=== PATIENT | female | born 1955 | race Caucasian/White ===

== ENCOUNTER 2017-08-11 20:05 | Inpatient (IN) | payer OTHER ==
[~2017-08-11] VITALS: Ht 170.1 cm; Wt 146.7 kg
--- NOTE | ~2017-08-11 | PR ---
[place], [place] PROGRESS NOTE NAME: AUDRA RODRIGUEZ UNIT #: [id number] ROOM: 412 DOCTOR: JD SHAH MD BIRTHDATE: [birth year] DOS: SUBJECTIVE: The patient is 62 years old, a resident of [facility] complained of increasing shortness of breath yesterday and she had audible wheezes as per the nursing staff, so she was sent out to the emergency room, diagnosed with acute diastolic CHF and was admitted. The patient this morning does not have any complaints. She feels much better. She has diuresed about 3000 mL during the night. She denies having any fever, any chills, any chest pains or palpitations PAST MEDICA HISTORY: Significant for: 1. History of coronary artery disease with history of stent placement. 2. Last hospitalization January 2016 with urinary tract infection. 3. Chronic kidney disease stage 3. 4. History of cardiomyopathy. 5. Patent foramina valve with long-term use of anticoagulant. 6. Type 2 diabetes mellitus. 7. Gastroparesis. 8. Autonomic neuropathy with orthostatic hypotension. MEDICATIONS: Breathing treatments with DuoNeb q.4h., carvedilol 3.125 twice daily, Plavix 75 daily, lisinopril 2.5 daily, Lasix 20 daily, metoclopramide 10 t.i.d., omeprazole 40 daily, Pravachol 40 daily, sodium bicarb 650 daily, warfarin and Levemir 30 at bedtime, lisinopril 2.5 daily. SOCIAL HISTORY: Nonsmoker, does not use any alcohol. PHYSICAL EXAMINATION: GENERAL: She is awake and alert and oriented. VITAL SIGNS: Blood pressure is 142/82, pulse of 85, respirations 20, temperature 97.8. LUNGS: Diminished breath sounds. No wheezes, rales or rhonchi heard. HEART: Regular. ABDOMEN: Obese, soft, nontender. EXTREMITIES: Without any edema. ASSESSMENT AND PLAN: 1. The patient with history of cardiomyopathy, admitted with possibly systolic congestive heart failure. Echocardiogram is pending. Consult Dr. Qureshi. IV diuretics were given. Continue beta blockers and ELIEZER inhibitors. 2. Type 2 diabetes mellitus, insulin-dependent, fairly controlled. 3. Chronic renal insufficiency. GFR of 41, stage 3 renal failure. Continue avoiding nephrotoxic meds and keep a close eye on the kidney functions since the patient has been placed on higher dose of diuretics. Hopefully, in a day she should be able to go back to the longterm. [place], [place] PROGRESS NOTE NAME: AUDRA RODRIGUEZ UNIT #: [id number] ROOM: [facility] DOCTOR: JD SHAH MD BIRTHDATE: [birth year] JD SHAH MD CM:PNTRANS [id number] JD SHAH MD 08/13/17 0931 MALINDA REHMAN.EMANUEL
--- NOTE | ~2017-08-11 | PR ---
[place], [place] PROGRESS NOTE NAME: AUDRA RODRIGUEZ UNIT #: [id number] ROOM: 412 DOCTOR: ERIN NASSAR MD BIRTHDATE: [birth year] DOS: 08/13/2017 SUBJECTIVE: The patient is comfortably sleeping. The patient was seen by Dr. Qureshi yesterday. OBJECTIVE: VITAL SIGNS: Hemodynamically stable. Blood pressure is stable. The patient has negative 490 mL and yesterday totally ____ liters out. NECK: Soft, supple elevated JVD. LUNGS: Diminished breath sounds. HEART: Heart sounds are regular. NEUROLOGIC: Stable. REVIEW OF SYSTEMS: Improving. LABORATORY DATA: The last echocardiogram showed an EF of 25%. Hemoglobin 10.9, hematocrit 35.2. Creatinine is 1.37, GFR is 39. IMPRESSION: Systolic congestive heart failure, cardiomyopathy, AICD, ischemic cardiomyopathy. RECOMMENDATIONS: Agree with the present management. Continue the diuretics as ordered. Continue anticoagulation. Continue ELIEZER inhibitors. Strict I's and O's. Continue the beta blockers and we will follow up. ERIN NASSAR MD CM:PNTRANS [id number] 4 ERIN NASSAR MD 08/14/174 interface
--- NOTE | ~2017-08-11 | CON ---
[place], [place] REPORT OF CONSULTATION NAME: AUDRA RODRIGUEZ UNIT #: [id number] ROOM: 412 DOCTOR: JABIER PETERSEN MD BIRTHDATE: [birth year] DOS: 08/12/2017 HISTORY OF PRESENT ILLNESS: This is a 62-year-old -[place] woman with morbid obesity, coronary artery disease, who had stent deployed in 2011. At that time, LV ejection fraction was about 25% and a year later, it remained unchanged and she had an AICD implanted. She has patent foramen ovale and I believe she has TIA and was on warfarin for this reason. Type 2 diabetes mellitus, neuropathy/gastroparesis. She does not smoke nor does she drink alcoholic beverages. She lives in a senior care and uses a walker to get around. For about 4 days, she had had increasing shortness of breath when she walked and it was worse at night and she had to wake up a few times. She had no palpitations. Did not have any chest heaviness or pressure and does not recall any dizziness or loss of consciousness. There was no nausea. She did not notice much difference in swelling of the legs. HOME MEDICATIONS: Numerous that included DuoNeb, carvedilol 3.125 b.i.d., clopidogrel 75 mg daily, furosemide 20 mg daily, fludrocortisone 0.1 mg b.i.d., mag hydroxide, metoclopramide 10 mg t.i.d., omeprazole 40 daily, pravastatin 40 daily, sodium bicarbonate 650 mg daily, warfarin 60 mg daily and 5 mg on Sundays, zinc 50 mg daily, NovoLog FlexPen and Levemir. PHYSICAL EXAMINATION: GENERAL: This reveals a patient who is very obese, pleasant, alert. She is not pale looking, no jaundice is present. There is no finger clubbing. VITAL SIGNS: Pulse is irregular at 72, blood pressure 158/94, blood pressure has been mildly elevated since admission. NECK: JVP is normal. AJR is negative. No bruit in the neck. HEART: There is no cardiomegaly and no murmurs are present. EXTREMITIES: Legs are very large, but no pitting edema is noted. RESPIRATORY: She is visibly tachypneic. Percussion note is normal. Auscultation reveals mild reduced breath sounds and crackles in the bases. DIAGNOSTIC STUDIES: Chest x-ray was read as showing no pulmonary edema. Monitor has shown normal sinus rhythm with atrial sensing, LV pacing and ECG showed normal sinus rhythm with rare PVC and biventricular pacing. LABORATORY DATA: Hemoglobin 10.9 g/dL. BUN 27, creatinine 1.32, glucose 165, potassium 3.6, sodium 142 and NT-proBNP 3670. IMPRESSION: This patient has severe ischemic cardiomyopathy, which has been pretty stable. She probably had acute on chronic diastolic failure that caused her shortness of breath, although chest x-ray did not demonstrate pulmonary edema. Current treatment with IV furosemide is appropriate and should be continued while monitoring renal function and blood pressure. I would prefer to increase the dose of carvedilol and will be changed from 3.125 to 6.25 mg b.i.d. [place], [place] REPORT OF CONSULTATION NAME: AUDRA RODRIGUEZ UNIT #: [id number] ROOM: 412 DOCTOR: JABIER PETERSEN MD BIRTHDATE: [birth year] I also recommend discontinuation of fludrocortisone, which ____ since patient has systolic heart failure. I thank you for this consult. ADDENDUM An echocardiogram was done today. It demonstrated an LV ejection fraction of 35-40%, which is an improvement from a couple of years ago. Mild pulmonary hypertension was also present and diastolic dysfunction of impaired relaxation of the left ventricle was also evident. JABIER PETERSEN MD CM:CONSTR:REPORT OF CONSULTATION 182 08/13/17 2007 interface
--- NOTE | ~2017-08-11 | WRIGHTHP ---
[place], [place] PATIENT HISTORY AND PHYSICAL EXAM NAME: AUDRA RODRIGUEZ UNIT #: [id number] ROOM: 412 DOCTOR: JD SHAH MD BIRTHDATE: [birth year] DOS: SUBJECTIVE: The patient is 62 years old, a resident of [facility] complained of increasing shortness of breath yesterday and she had audible wheezes as per the nursing staff, so she was sent out to the emergency room, diagnosed with acute diastolic CHF and was admitted. The patient this morning does not have any complaints. She feels much better. She has diuresed about 3000 mL during the night. She denies having any fever, any chills, any chest pains or palpitations PAST MEDICA HISTORY: Significant for: 1. History of coronary artery disease with history of stent placement. 2. Last hospitalization January 2016 with urinary tract infection. 3. Chronic kidney disease stage 3. 4. History of cardiomyopathy. 5. Patent foramina valve with long-term use of anticoagulant. 6. Type 2 diabetes mellitus. 7. Gastroparesis. 8. Autonomic neuropathy with orthostatic hypotension. MEDICATIONS: Breathing treatments with DuoNeb q.4h., carvedilol 3.125 twice daily, Plavix 75 daily, lisinopril 2.5 daily, Lasix 20 daily, metoclopramide 10 t.i.d., omeprazole 40 daily, Pravachol 40 daily, sodium bicarb 650 daily, warfarin and Levemir 30 at bedtime, lisinopril 2.5 daily. SOCIAL HISTORY: Nonsmoker, does not use any alcohol. PHYSICAL EXAMINATION: GENERAL: She is awake and alert and oriented. VITAL SIGNS: Blood pressure is 142/82, pulse of 85, respirations 20, temperature 97.8. LUNGS: Diminished breath sounds. No wheezes, rales or rhonchi heard. HEART: Regular. ABDOMEN: Obese, soft, nontender. EXTREMITIES: Without any edema. ASSESSMENT AND PLAN: 1. The patient with history of cardiomyopathy, admitted with possibly systolic congestive heart failure. Echocardiogram is pending. Consult Dr. Qureshi. IV diuretics were given. Continue beta blockers and ELIEZER inhibitors. 2. Type 2 diabetes mellitus, insulin-dependent, fairly controlled. 3. Chronic renal insufficiency. GFR of 41, stage 3 renal failure. Continue avoiding nephrotoxic meds and keep a close eye on the kidney functions since the patient has been placed on higher dose of diuretics. Hopefully, in a day she should be able to go back to the correction. [place], [place] PATIENT HISTORY AND PHYSICAL EXAM NAME: AUDRA RODRIGUEZ UNIT #: [id number] ROOM: [facility] DOCTOR: JD SHAH MD BIRTHDATE: [birth year] JD SHAH MD CM:HISPHYS:PATIENT HISTORY AND PHYSICAL EXAMINATION [id number] JD SHAH MD 08/13/17 0908 interface
--- NOTE | ~2017-08-11 | PR ---
[place], [place] PROGRESS NOTE NAME: AUDRA RODRIGUEZ UNIT #: [id number] ROOM: 412 DOCTOR: JD SHAH MD BIRTHDATE: [birth year] DOS: SUBJECTIVE: The patient is not having any new complaints today. She did complain of some shaking feeling from the breathing treatments. OBJECTIVE: VITAL SIGNS: Blood pressure is 140/74, pulse of 82, respirations 28, temperature 98.2. LUNGS: Diminished breath sounds. No rales heard this morning. HEART: Regular. ABDOMEN: Obese, soft. EXTREMITIES: Without any edema. LABORATORY DATA: WBC count is 7.8, hemoglobin 10.9. BMP: Glucose 138, BUN 35, creatinine 1.37. GFR 39. ASSESSMENT AND PLAN: 1. Acute systolic congestive heart failure, patient is on IV diuretics, clinically improving. 2. Tremors and shaky feeling from the breathing treatments. We will discontinue it because she does not have any evidence of bronchospasm. 3. Coronary artery disease of [place] coronaries. Continue home medications. She was seen by cardiology yesterday. The plan is to discharge her home tomorrow. JD SHAH MD CM:PNTRANS 0830 [id number] JD SHAH MD 08/13/17 1147 interface
--- NOTE | ~2017-08-11 | PR ---
[place], [place] PROGRESS NOTE NAME: AUDRA RODRIGUEZ UNIT #: [id number] ROOM: 412 DOCTOR: JD SHAH MD BIRTHDATE: [birth year] DOS: SUBJECTIVE: The patient is doing fine without any complaint. Denies any chest pains, palpitations or shortness of breath. PHYSICAL EXAMINATION: VITAL SIGNS: Blood pressure is 156/60, pulse of 73, respirations 18, temperature 97.3. LUNGS: Clear. HEART: Regular. ABDOMEN: Obese, soft, nontender. EXTREMITIES: Without any edema. ASSESSMENT AND PLAN: 1. Acute systolic congestive heart failure, clinically and radiologically improved. Echocardiogram showing LV function of 40%, which is an improvement from before. 2. History of coronary artery disease of the [place] coronaries. The patient does not have any complaints, was seen by cardiology and does not recommend any further evaluation. The plan is therefore to discharge her to the halfway today. JD SHAH MD CM:PNTRANS [id number] JD SHAH MD 08/14/17 1506 interface
--- NOTE | ~2017-08-11 | DS ---
[place], [place] DISCHARGE SUMMARY NAME: AUDRA RODRIGUEZ UNIT #: [id number] ROOM: 412 DOCTOR: JD SHAH MD BIRTHDATE: [birth year] DOS: 08/14/2017 DIAGNOSES: 1. Acute systolic congestive heart failure with ejection fraction of 40%. 2. Coronary artery disease with history of stent placement. 3. Pulmonary hypertension. 4. Chronic respiratory failure. 5. Patent foramen ovale. The patient is on long-term use of anticoagulants. 6. Type 2 diabetes mellitus, insulin-dependent. 7. Gastroparesis. 8. Autonomic neuropathy with orthostatic hypotension. 9. Benign hypertension. 10. Morbid obesity. DISCHARGE MEDICATIONS: Plavix 75 daily, insulin 30 units, Levemir at bedtime, lisinopril 2.5 daily, NovoLog FlexPen sliding scale, omeprazole 40 daily, Pravachol 40 daily, vitamin D 3000 units daily, zinc 50 daily, Tylenol 1000 mg q.8h. p.r.n., incentive spirometry q.i.d., Florinef 0.1 mg twice a day, carvedilol 3.125 mg twice a day, cholestyramine 4 grams p.o. daily, Coumadin 6 mg daily except 5 mg on Sundays, Lasix which is increased to 40 mg daily. HOSPITAL COURSE: This patient is 62 years old, very well known to us, comes in with complaints of shortness of breath. Please refer to H and P for details. The patient was admitted with diagnosis of acute systolic CHF. The patient was started on high dose of diuretics. She diuresed nicely. Cardiology consultation was obtained. Echocardiogram was ordered. Echo showed improvement in the LV function when compared to a few years ago. The patient was seen by and Dr. Qrueshi and agreed on the treatment plan. The patient is stable and is improving and is not having any new problems, so plan is to discharge her back to the assisted today, follow up as an outpatient. [place], [place] DISCHARGE SUMMARY NAME: AUDRA RODRIGUEZ UNIT #: [id number] ROOM: 412 DOCTOR: JD SHAH MD BIRTHDATE: [birth year] JD SHHA MD CM:HARSH 9 JD SHAH MD 08/14/17 1048 interface
[~2017-08-11 20:05] MED LIST: ALDACTONE25 MG PO; AMBIEN5 MG PO; AQUAPHOR1 OI1 T; ASPERCREME10% TP; ASPIRIN EC325 MG PO; ASPIRIN81 M1 PO; ATIVAN1 MG PO; B-1100 MG PO; B121000 MCG/1 IM; BUSPAR10 MG; BUSPAR10 MG PO; CARAFATE1 G1 PO; CELEXA40 MG PO; CEPHULAC10 GM/15 M PO; CIPRO500 MG PO; CLOPIDOGREL75 MG PO; COLACE; COLACE100 MG; COLACE100 MG PO; CONSTULOSE10 GM/151 PO; COREG12.5 M1 PO; COREG12.5 MG PO; COREG6.25 MG PO; COUMADIN5 MG PO; COUMADIN6 M2 PO; CYMBALTA30 MG PO; CYMBALTA60 MG PO; Clopidogrel75 MG PO; DOCUSATE100 MG PO; DOXYCYCLINE100 M3 PO; DRAMAMINE50 M1; DRAMAMINE50 M1 PO; DRAMAMINE50 M2 PO; FLORINEF0.1 MG PO; FLUDROCORTISON0.1 MG PO; HYDR1000 IM; HYDROCODONE BIT1 T12 PO; HYDROPHOR1 OI1 TP; IPRATROPIUM BR IH; JANTOVEN5 MG PO; JANTOVEN6 MG PO; K-DUR 2020 MEQ PO; K-TAB10 MEQ PO; KRISTALOSE20 GM/PACK PO; LANTUS100 U/ML; LASIX20 MG PO; LASIX40 MG PO; LEVEMIR100 U/ML; LEVEMIR100 U/ML SC; LEVEMIR100 UNIT/1 SQ; LISINOPRIL2.5 MG PO; MASOPHEN325 MG PO; MIRALAX POWDER17 G1 PO; MIRALAX POWDER17 GM PO; MIRALAX17 GM/PACK PO; MOM30 ML PO; MYCOSTATIN100000 U/G TP; NAPROSYN500 MG PO; NATURAL ZINC1 TAB PO; NEXIUM40 MG PO; NITROSTAT0.4 MG PO; NITROSTAT0.4 MG SL; NOVOLOG; NOVOLOG FLEX100 U/ML SC; NOVOLOG1 UNIT/0.0 SC; OMEPRAZOLE40 MG PO; OS-CAL 500 + D1 TAB PO; OSCAL + D; OSCAL/D,OYSTER250 MG PO; OXYCODONE5 MG PO; PHENERGAN25 M3 PO; PLAVIX75 MG PO; PRAVACHOL40 MG PO; PRAVASTATIN SOD40 MG PO; PRILOSEC20 M1 PO; PRILOSEC40 MG PO; PRINIVIL2.5 MG PO; PRINIVIL5 M1 PO; PROTONIX40 MG PO; REGLAN10 M1 PO; REGLAN10 MG PO; REMERON15 M2 PO; RENAGEL800 MG PO; RESTORIL30 MG; RESTORIL30 MG PO; SALINE NASAL SP45 ML NAS; SEA SOFT MIST 445 ML NAS; SIMVASTATIN40 MG PO; TEMAZEPAM30 MG PO; TRAMADOL HCL50 MG PO; TYLENOL EXTRA500 MG PO; TYLENOL650 M1 PO; ULTRAM50 MG PO; VITAMIN B121000 MCG PO; VITAMIN D; VITAMIN D1000 IU PO; VITAMIN D2000 IU PO; VITAMIN D31000 I1 PO; VITAMIN D33000 UNIT PO; VOLTAREN1% TP; WELLBUTRIN XL300 MG PO; ZESTRIL2.5 MG PO; ZINC NATURAL50 MG PO; ZOFRAN8 MG PO; [UNRECOGNIZED DRUG - OTHER]
[2017-08-11 20:11] VITALS: BP 176/85
[2017-08-11 20:30] LABS: BASO # 0.1 10*3/uL (0.0-0.1); BASO % 0.6 % (0.0-1.0); EOS # 0.2 10*3/uL (0.0-0.4); EOS % 2.4 % (1.0-4.0); HEMATOCRIT 35.5 % (37.0-47.0); HEMOGLOBIN 10.9 g/dl (12.0-16.0); LYMPH # 1.5 10*3/uL (1.3-4.4); LYMPH % 18.3 % (27.0-41.0); MEAN CELL VOLUME 85.1 fl (81.0-99.0); MEAN CORPUSCULAR HGB 26.1 pg (27.0-31.0); MEAN CORPUSCULAR HGB CONC 30.7 g/dl (33.0-37.0); MEAN PLATELET VOLUME 12.8 fl (9.6-12.3); MONO # 0.5 10*3/uL (0.1-1.0); NEUT % 72.5 % (47.0-73.0); PLATELET COUNT AUTOMATED 177 10*3/uL (130-400); RED BLOOD COUNT 4.17 10*6/uL (4.10-5.10); WHITE BLOOD COUNT 8.3 10*3/uL (4.8-10.8)
[2017-08-11 20:40] LABS: ACT PARTIAL THROMBO TIME 36.5 SECONDS (20.8-31.5); INTERNATIONAL NORM RATIO 2.6 (2.0-3.5)
[2017-08-11 20:47] LABS: ALBUMIN 3.1 gm/dl (3.1-4.5); ALKALINE PHOSPHATASE 145 U/L (45-117); BUN 27 mg/dl (7-24); CHLORIDE 108 mmol/L (98-107); CREATININE 1.32 mg/dL (0.55-1.02); MAGNESIUM 1.8 mg/dL (1.5-2.1); POTASSIUM 3.6 mmol/L (3.5-5.1); SGOT/AST 16 IU/L (3-35); SGPT/ALT 18 U/L (12-78); SODIUM 142 mmol/L (136-145); TOTAL PROTEIN 7.3 gm/dL (6.4-8.2)
[2017-08-11 20:49] LABS: TROPONIN I < 0.015 ng/ml (<0.045)
--- NOTE | 2017-08-11 21:42 | NUR ---
VERIFIED WITH DR MCGRATH IF HE WANTED FULL 80 MG OF LASIX TO BE GIVEN IV PUSH AND GIVEN VO BY DR TO ONLY GIVE 40MG IV
[2017-08-11 22:15] VITALS: BP 142/82
--- NOTE | 2017-08-11 22:15 | NUR ---
Time: 2214 A 62 year old FEMALE admitted to 4E under services of DR. PABLO MARIE,JD. Pt. arrived via stretcher from ER. Chief complaint: SOB, CHF. SOL KERN
[2017-08-11 22:30] VITALS: BP 142/82
--- NOTE | 2017-08-11 22:55 | NUR ---
SPOKE TO AT THIS TIME. NEW ADMISSION ORDERS RECEIVED. STATES SHE WILL PUT IN ADMIT TO ORDER TOMORROW, BUT DOES WANT PATIENT TO BE ON A MONITOR.
[2017-08-12] VITALS: BP 142/82
[2017-08-12] MEDS ORDERED: FLUDROCORTISON0.1 MG PO (01:53)
[2017-08-12] MEDS ORDERED: DUONEB 3 MG/3 ML3 M1 INH (01:53)
[2017-08-12] MEDS ORDERED: GLUCAGON EMERGEN1 M1 IM (01:55)
[2017-08-12] MEDS ORDERED: MILK OF MA400 MG/5 M PO (01:57)
[2017-08-12] MEDS ORDERED: CARVEDILOL3.125 MG PO (01:59)
[2017-08-12] MEDS ORDERED: CHOLESTYRAMI239.4 GM PO (02:02)
[2017-08-12] MEDS ORDERED: JANTOVEN6 M1 PO (02:06)
[2017-08-12] MEDS ORDERED: JANTOVEN5 MG PO (02:06)
[2017-08-12] MEDS ORDERED: ACETAMINOPHEN500 M4 PO (02:24)
[2017-08-12] MEDS ORDERED: VITAMIN B1250 MCG PO (02:26)
[2017-08-12] MEDS ORDERED: SODIUM BICARBO650 MG PO (02:30)
--- NOTE | 2017-08-12 02:30 | NUR ---
PATIENT'S MED REC UP TO DATE PER LONG TERM PAPERWORK
--- NOTE | 2017-08-12 06:49 | NUR ---
SPOKE WITH AT THIS TIME REGARDING CONSULT. INSTRUCTED TO ORDER ECHO IF PT HAS NOT HAD ONE IN PAST YEAR. ECHO ORDERED PER 'S INSTRUCTION.
--- NOTE | 2017-08-12 07:35 | NUR ---
Shift chart check completed.24 HR chart check completed.
[2017-08-12 08:00] VITALS: BP 139/82
--- NOTE | 2017-08-12 08:30 | NUR ---
ACTUARY MANAGER VS. PT IS LTC AT [facility] AND PLANS TO RETURN UPON DC.
[2017-08-12 08:43] VITALS: BP 130/80
--- NOTE | 2017-08-12 08:47 | NUR ---
DR SHAH HAS VISITED. PT IS TACHYPNEIC, ORTHOPNEIC AND DYSPNEIC WITH MINIMAL EXERTION.
--- NOTE | 2017-08-12 13:32 | NUR ---
ECHO HAS BEEN DONE AND DR PETERSEN HAS VISITED.
--- NOTE | 2017-08-12 14:09 | NUR ---
This nurse went into to evaluate patients area to left elbow. Patient has a 2.0cm x 2.0cm x <0.1cm red area that is blanchable. No drainage noted. No complaints of pain during assessment.
[2017-08-12 14:37] VITALS: BP 153/80
[2017-08-12 16:00] VITALS: BP 158/94
[2017-08-12 20:00] VITALS: BP 159/84
[2017-08-13] VITALS: BP 131/70
[2017-08-13 05:59] LABS: CREATININE 1.37 mg/dL (0.55-1.02); POTASSIUM 3.5 mmol/L (3.5-5.1)
[2017-08-13 06:02] LABS: BASO % 0.3 % (0.0-1.0); EOS # 0.1 10*3/uL (0.0-0.4); EOS % 1.7 % (1.0-4.0); HEMATOCRIT 35.2 % (37.0-47.0); HEMOGLOBIN 10.9 g/dl (12.0-16.0); LYMPH # 0.9 10*3/uL (1.3-4.4); LYMPH % 11.4 % (27.0-41.0); MEAN CELL VOLUME 85.6 fl (81.0-99.0); MEAN CORPUSCULAR HGB 26.5 pg (27.0-31.0); MEAN PLATELET VOLUME 12.9 fl (9.6-12.3); MONO # 0.6 10*3/uL (0.1-1.0); MONO % 7.8 % (3.0-9.0); NEUT # 6.1 10*3/uL (2.3-7.9); NEUT % 78.5 % (47.0-73.0); PLATELET COUNT AUTOMATED 177 10*3/uL (130-400); RED BLOOD COUNT 4.11 10*6/uL (4.10-5.10); RED CELL DISTRI WIDTH 14.8 % (0-14.5); WHITE BLOOD COUNT 7.8 10*3/uL (4.8-10.8)
[2017-08-13 08:00] VITALS: BP 139/73; BP 140/74
--- NOTE | 2017-08-13 08:00 | NUR ---
AWAKE ALERT AND ORIENTED X3, OBESE. NO C/O. NO S/S OF DISTRESS. EATING BREAKFAST. LUNGS DIMINISHED. 3L O2 VIA NC. WILL CONT TO MONITOR. CALL LIGHT IN REACH. LABS REVIEWED.
--- NOTE | 2017-08-13 08:30 | NUR ---
DR SHAH IN TO SEE PT.
[2017-08-13 12:00] VITALS: BP 128/67
--- NOTE | 2017-08-13 14:30 | NUR ---
PT REQUESTED TO HAVE FLU VACCINE.
--- NOTE | 2017-08-13 14:43 | NUR ---
IN BED. NO S/S OF DISTRESS. WILL CONT TO MONITOR. CALL LIGHT IN REACH.
[2017-08-13 16:00] VITALS: BP 112/98
[2017-08-13 20:00] VITALS: BP 152/78
[2017-08-14] VITALS: BP 105/63
--- NOTE | 2017-08-14 01:10 | NUR ---
24 HR chart check completed.
[2017-08-14 04:00] VITALS: BP 154/92
[2017-08-14 08:00] VITALS: BP 156/68
--- NOTE | 2017-08-14 08:05 | NUR ---
patient comes from [facility] and can return when medically stable for discharge.
[2017-08-14] MEDS ORDERED: LASIX20 MG PO (08:53)
--- NOTE | 2017-08-14 09:45 | NUR ---
PT SITTING UP IN BED. RESP-EASY AND REGULAR. PT EXCITED ABOUT GOING BACK TO [facility]. NO C/O AT THIS TIME. CALL LIGHT IN REACH. LUNGS DIMINISHED T/O.
[2017-08-14 12:00] VITALS: BP 145/77
--- NOTE | 2017-08-14 13:00 | NUR ---
SITTING UP IN BED. NO C/O AT THIS TIME. CALL LIGHT IN REACH.
--- NOTE | 2017-08-14 13:00 | NUR ---
Discharge instructions reviewed with patient. Patient receptive and verbalizes understanding. Follow-up care arranged. Written instructions given to patienT. HEPLOCK REMOVED 2X2 APPLIED. HUMBERTO COLLADO
--- NOTE | 2017-08-14 13:39 | NUR ---
[facility] ON FLOOR TO TRANSPORT PT TO [facility]. DISCHARGE INSTRUCTIONS GIVEN TO AMBULANCE.
--- NOTE | 2017-08-14 13:40 | NUR ---
SPOKE WITH MARIE AT THE MEDICAL CENTER REPORT GIVEN
== END 2017-08-14 13:39 | disposition home or self-care (01) | DRG 291 ==
LOC: ED 20:05 → EDHOLD 20:58 → 4E 20:58
PROVIDERS: Student in an Organized Health Care Education/Training Program; ADMIT Internal Medicine
DX: I13.0 Hypertensive heart and chronic kidney disease with heart failure and stage 1 through stage 4 chronic kidney disease, or unspecified chronic kidney disease (principal); J96.20 Acute and chronic respiratory failure, unspecified whether with hypoxia or hypercapnia; N18.4 Chronic kidney disease, stage 4 (severe); Q21.1 Atrial septal defect; E11.22 Type 2 diabetes mellitus with diabetic chronic kidney disease; I27.2 Other secondary pulmonary hypertension; I50.41 Acute combined systolic (congestive) and diastolic (congestive) heart failure; Z68.43 Body mass index [BMI] 50.0-59.9, adult; K31.84 Gastroparesis; E11.43 Type 2 diabetes mellitus with diabetic autonomic (poly)neuropathy; E66.01 Morbid (severe) obesity due to excess calories; I25.10 Atherosclerotic heart disease of native coronary artery without angina pectoris; K21.9 Gastro-esophageal reflux disease without esophagitis; I95.1 Orthostatic hypotension; I25.5 Ischemic cardiomyopathy; J44.9 Chronic obstructive pulmonary disease, unspecified; Z88.1 Allergy status to other antibiotic agents; Z91.041 Radiographic dye allergy status; Z88.8 Allergy status to other drugs, medicaments and biological substances; Z79.4 Long term (current) use of insulin; Z79.899 Other long term (current) drug therapy; Z87.440 Personal history of urinary (tract) infections; Z90.710 Acquired absence of both cervix and uterus; Z79.01 Long term (current) use of anticoagulants; Z83.3 Family history of diabetes mellitus; Z82.49 Family history of ischemic heart disease and other diseases of the circulatory system; Z95.810 Presence of automatic (implantable) cardiac defibrillator

== ENCOUNTER 2021-09-08 09:53 | Emergency (ER) | payer MEDICARE, OTHER ==
[~2021-09-08] VITALS: Ht 165.1 cm; Wt 181.4 kg
[~2021-09-08 09:53] MED LIST changes: +ACETAMINOPHEN500 M4 PO; +AUGMENTIN 875-875 MG PO; +BUMETANIDE2 MG PO; +CARVEDILOL3.125 MG PO; +CHOLESTYRAMI239.4 GM PO; +DUONEB 3 MG/3 ML3 M1 INH; +ELIQUIS5 M1 PO; +GLUCAGON EMERGEN1 M1 IM; +JANTOVEN6 M1 PO; +KLOR-CON M2020 ME1 PO; +LIDODERM1 EACH T; +MILK OF MA400 MG/5 M PO; +SODIUM BICARBO650 MG PO; +VITAMIN B1250 MCG PO
[2021-09-08 10:35] VITALS: BP 00/00
[2021-09-08 10:51] LABS: HEMATOCRIT 34.4 % (37.0-47.0); MEAN CORPUSCULAR HGB 28.9 pg (27.0-31.0); MEAN CORPUSCULAR HGB CONC 27.3 g/dl (33.0-37.0); MEAN PLATELET VOLUME 12.8 fl (9.6-12.3); NUCLEATED RED BLOOD CELL 0.1 10*3/uL (0.0-0.0); NUCLEATED RED BLOOD CELL 0.4 % (0.0-0.0); PLATELET COUNT AUTOMATED 157 10*3/uL (130-400); RED BLOOD COUNT 3.25 10*6/uL (4.10-5.10); RED CELL DISTRI WIDTH 14.6 % (0-14.5); WHITE BLOOD COUNT 11.3 10*3/uL (4.8-10.8)
[2021-09-08 10:53] LABS: MEAN CELL VOLUME 105.8 fl (81.0-99.0)
[2021-09-08 10:57] LABS: ALBUMIN 2.7 gm/dl (3.1-4.5); CREATININE 3.45 mg/dL (0.55-1.02); TOTAL PROTEIN 6.6 gm/dL (6.4-8.2)
[2021-09-08 11:00] LABS: PLATELET SUFFICIENCY NORMAL (NORMAL); TOTAL CELLS COUNTED 100 #CELLS
[2021-09-08 11:04] LABS: POTASSIUM 6.4 mmol/L (3.5-5.1)
== END 2021-09-08 10:38 ==
LOC: ED 09:53
PROVIDERS: Family Medicine
DX: U07.1 COVID-19 (principal); I46.9 Cardiac arrest, cause unspecified; J96.00 Acute respiratory failure, unspecified whether with hypoxia or hypercapnia; Z91.041 Radiographic dye allergy status; Z88.6 Allergy status to analgesic agent; Z88.8 Allergy status to other drugs, medicaments and biological substances; Z88.1 Allergy status to other antibiotic agents; Z79.2 Long term (current) use of antibiotics; Z79.4 Long term (current) use of insulin; Z79.899 Other long term (current) drug therapy; Z90.711 Acquired absence of uterus with remaining cervical stump; Z98.61 Coronary angioplasty status